=== PATIENT | female | born 1950 | race Two or more races ===

== ENCOUNTER 2020-04-09 05:55 | Day surgery (SDC) | payer OTHER ==
[~2020-04-09 05:55] MED LIST: CANDESARTAN-HC1 EAC1 PO; GLIPIZIDE XL10 MG PO; METOP PO; SYNTH PO
== END 2020-04-09 14:40 | disposition home or self-care (01) ==
LOC: CIR.AMB 05:55 → ADM 10:00 → CIR.AMB 10:00
PROVIDERS: ATTEND Surgery Surgery of the Hand
DX: M67.843 Other specified disorders of tendon, right hand (principal); Z20.828 Contact with and (suspected) exposure to other viral communicable diseases

== ENCOUNTER 2021-11-18 12:16 | Emergency (ER) | payer OTHER ==
[~2021-11-18] VITALS: Ht 152.4 cm; Wt 108.0 kg
[2021-11-18] MEDS ORDERED: MEGESTROL ACETA40 MG PO (18:14)
== END 2021-11-18 18:57 | disposition home or self-care (01) ==
LOC: ER 12:16
DX: N85.01 Benign endometrial hyperplasia (principal); N93.9 Abnormal uterine and vaginal bleeding, unspecified; E11.9 Type 2 diabetes mellitus without complications; Z79.84 Long term (current) use of oral hypoglycemic drugs; I10 Essential (primary) hypertension

== ENCOUNTER 2022-03-10 09:10 | Day surgery (SDC) | payer OTHER ==
[~2022-03-10] VITALS: Ht 152.4 cm; Wt 107.0 kg
[~2022-03-10 09:10] MED LIST changes: +ALBUTEROL2.5 MG/3 M IH; +JANUVIA25 MG PO; +MEGESTROL ACETA40 MG PO; +PROAIR RESPICL90 MCG IH
== END 2022-03-10 19:30 | disposition home or self-care (01) ==
LOC: CIR.AMB 09:10
PROVIDERS: ATTEND Obstetrics & Gynecology
DX: N95.0 Postmenopausal bleeding (principal); Q51.818 Other congenital malformations of uterus; Z20.822 Contact with and (suspected) exposure to COVID-19; I10 Essential (primary) hypertension; J45.909 Unspecified asthma, uncomplicated; E11.9 Type 2 diabetes mellitus without complications; M19.90 Unspecified osteoarthritis, unspecified site; Z79.84 Long term (current) use of oral hypoglycemic drugs